=== PATIENT | female | born 1945 | race Caucasian/White ===

== ENCOUNTER → 2019-03-01 | Outpatient (CLI) | payer MEDICARE ==
[~2019-03-01] MED LIST: Bupropion Xl150 MG PO; DIPATRL; FLUOXETINE HCL60 MG PO; HYDCHL25 PO; Pravachol40 MG PO; Prinivil10 MG PO
== END | disposition home or self-care (01) ==
LOC: PLD 08:22 → LAB SHORT 08:22
DX: B35.1 Tinea unguium (principal); L60.2 Onychogryphosis
CPT/HCPCS: 88305; 88312

== ENCOUNTER 2019-03-11 11:10 | Day surgery (SDC) | payer MEDICARE ==
[~2019-03-11 11:10] MED LIST changes: -DIPATRL
[2019-03-11] MEDS ORDERED: DIPATRL (11:58)
--- NOTE | 2019-03-11 12:48 | NUR ---
03/11/19 1248 Lara Knapp 2CC NORMAL SALINE INJECTED FOR POLYPECTOMY IN TRANSVERSE COLON
== END 2019-03-11 13:45 | disposition home or self-care (01) ==
LOC: ORSCSDS 11:10
PROVIDERS: Student in an Organized Health Care Education/Training Program
PROC: 0DBK8ZX Excision of Ascending Colon, Via Natural or Artificial Opening Endoscopic, Diagnostic (ICD-10-PCS; principal; 2019-03-11 12:45)
PROC: 0DBH8ZX Excision of Cecum, Via Natural or Artificial Opening Endoscopic, Diagnostic (ICD-10-PCS; principal; 2019-03-11 12:45)
PROC: 0DBL8ZX Excision of Transverse Colon, Via Natural or Artificial Opening Endoscopic, Diagnostic (ICD-10-PCS; principal; 2019-03-11 12:45)
PROC: 0DBN8ZX Excision of Sigmoid Colon, Via Natural or Artificial Opening Endoscopic, Diagnostic (ICD-10-PCS; principal; 2019-03-11 12:45)
DX: R19.7 Diarrhea, unspecified (principal); Z86.010 Personal history of colon polyps; D12.0 Benign neoplasm of cecum; D12.2 Benign neoplasm of ascending colon; K63.5 Polyp of colon; K57.30 Diverticulosis of large intestine without perforation or abscess without bleeding; F17.210 Nicotine dependence, cigarettes, uncomplicated; Z79.899 Other long term (current) drug therapy; E66.01 Morbid (severe) obesity due to excess calories; Z68.41 Body mass index [BMI] 40.0-44.9, adult
CPT/HCPCS: 88305; J2704; J7120

== ENCOUNTER → 2019-05-11 | Outpatient (CLI) | payer MEDICARE ==
[~2019-05-11] MED LIST changes: +DIPATRL
[2019-05-12 18:27] LABS: Bilirubin, Urine Neg (Neg); Blood, Urine 2+ (Neg); Glucose Qualitative, Urine Neg (Neg); Ketones, Urine Neg (Neg); Leukocyte Esterase, Urine 1+ (Neg); Nitrite, Urine Neg (Neg); Protein, Urine Neg (Neg); Specific Gravity, Urine 1.015 (1.003-1.022); Urobilinogen, Urine NORM (Normal)
[2019-05-12 18:47] LABS: Appearance, Urine Clear (Clear); Color, Urine Yellow (P-Yellow)
[2019-05-12 18:49] LABS: Bacteria Mod /hpf; Calcium Oxalate Crystals Few /hpf; Red Blood Cells, Urine 0-2 /hpf (0-2); Squamous Epithelial Cells Few /hpf (Few)
== END | disposition home or self-care (01) ==
LOC: LAB 17:20 → LAB SHORT 17:20
PROVIDERS: Registered Nurse
DX: R31.9 Hematuria, unspecified (principal)
CPT/HCPCS: 81001; 87086

== ENCOUNTER → 2019-08-11 | Outpatient (CLI) | payer MEDICARE | END | disposition home or self-care (01) | LOC: LAB 18:05 → LAB SHORT 18:05 | DX: R31.9 Hematuria, unspecified (principal) | CPT/HCPCS: 87086 ==

== ENCOUNTER → 2019-08-18 | Outpatient (CLI) | payer MEDICARE ==
[2019-08-18 18:37] LABS: Bilirubin, Urine Neg (Neg); Blood, Urine Neg (Neg); Glucose Qualitative, Urine Neg (Neg); Ketones, Urine Neg (Neg); Leukocyte Esterase, Urine 1+ (Neg); Nitrite, Urine Neg (Neg); Protein, Urine 1+ (Neg); Specific Gravity, Urine 1.025 (1.003-1.022); Urobilinogen, Urine NORM (Normal)
[2019-08-18 18:47] LABS: Appearance, Urine Clear (Clear); Color, Urine Yellow (P-Yellow)
[2019-08-18 18:48] LABS: Bacteria Many /hpf; Red Blood Cells, Urine 0-2 /hpf (0-2); Squamous Epithelial Cells Mod /hpf (Few)
== END | disposition home or self-care (01) ==
LOC: LAB 17:20 → LAB SHORT 17:20
PROVIDERS: Registered Nurse
DX: R31.9 Hematuria, unspecified (principal)
CPT/HCPCS: 81001; 87086

== ENCOUNTER 2020-05-20 14:07 | Emergency (ER) | payer MEDICARE ==
[~2020-05-20] VITALS: Ht 165.1 cm; Wt 127.0 kg
== END 2020-05-20 16:55 | disposition home or self-care (01) ==
LOC: ER 14:07
DX: S06.0X0A Concussion without loss of consciousness, initial encounter (principal); J44.9 Chronic obstructive pulmonary disease, unspecified; I10 Essential (primary) hypertension; E78.5 Hyperlipidemia, unspecified; Z87.891 Personal history of nicotine dependence
CPT/HCPCS: 36415; 70450; 93005; 93010; 99284-25

== ENCOUNTER → 2020-07-03 | Outpatient (CLI) | payer MEDICARE | END | disposition home or self-care (01) | LOC: LAB 12:07 | DX: R33.9 Retention of urine, unspecified (principal); R73.03 Prediabetes | CPT/HCPCS: 36415; 83036 ==

== ENCOUNTER → 2020-10-16 | Outpatient (CLI) | payer MEDICARE ==
[2020-10-16 18:45] LABS: Creatinine, Urine Random 53.2 mg/dL (27.00-270.00)
[2020-10-16 18:48] LABS: Microalb/Creat Ratio UR, Rand 10.602 mg/g (0.000-30.000); Microalbumin, Random Urine 5.64 mg/L (0.000-20.000)
== END | disposition home or self-care (01) ==
LOC: LAB 08:00 → LAB SHORT 08:00
PROVIDERS: Registered Nurse
DX: R73.03 Prediabetes (principal)
CPT/HCPCS: 82043; 82570

== ENCOUNTER → 2021-04-04 | Outpatient (CLI) | payer MEDICARE | LOC: LAB SHORT 07:20 → LAB 07:20 | DX: D48.5 Neoplasm of uncertain behavior of skin (principal); L57.0 Actinic keratosis; Z88.1 Allergy status to other antibiotic agents | CPT/HCPCS: 88305 ==

== ENCOUNTER → 2022-08-22 | Outpatient (CLI) | payer MEDICARE | LOC: LAB 16:32 | DX: R15.9 Full incontinence of feces (principal) | CPT/HCPCS: 82653 ==

== ENCOUNTER 2022-09-15 09:27 | Emergency (ER) | payer MEDICARE ==
[~2022-09-15] VITALS: Ht 165.1 cm; Wt 117.9 kg
[2022-09-15] MEDS ORDERED: BUPROPION HCL200 M1 PO (10:22)
[2022-09-15] MEDS ORDERED: ANORO ELLIPTA1 EAC1 INH (10:23)
[2022-09-15] MEDS ORDERED: METFORMIN HCL500 M2 PO (10:26)
[2022-09-15 11:11] LABS: BASOPHILS ABSOLUTE AUTO 0.04 K/mm3 (0.00-0.23); BASOPHILS PERCENT AUTO 0 % (0-2); EOSINOPHILS ABSOLUTE AUTO 0.01 K/mm3 (0.00-0.68); EOSINOPHILS PERCENT AUTO 0 % (0-6); Hematocrit 36.3 % (33.0-51.0); Hemoglobin 11.6 g/dL (11.5-16.0); IMMATURE GRAN ABSOLUTE AUTO 0.03 K/mm3 (0.00-0.10); IMMATURE GRAN PERCENT AUTO 0 % (0-1); LYMPHOCYTES PERCENT AUTO 11 % (21-46); MONOCYTES ABSOLUTE AUTO 0.53 K/mm3 (0.16-1.47); MONOCYTES PERCENT AUTO 5 % (4-13); Mean Corpuscular HGB 29.5 pg (26.0-34.0); Mean Corpuscular Volume 92 fL (80-100); NEUTROPHILS ABSOLUTE AUTO 8.14 K/mm3 (1.96-9.15); NEUTROPHILS PERCENT AUTO 83 % (41-73); Platelet Count 312 K/mm3 (150-400); RDW Coefficient Variation 14.4 % (11.7-14.2); RDW Standard Deviation 48.7 fL (35.1-46.3); Red Blood Cell Count 3.93 M/mm3 (3.80-5.20); White Blood Cell Count 9.85 K/mm3 (4.00-11.30)
[2022-09-15 11:46] LABS: Magnesium, Blood 1.5 mg/dL (1.6-2.4)
[2022-09-15 11:51] LABS: Albumin, Blood 3.5 g/dL (3.4-5.0); Bilirubin, Total 0.3 mg/dL (0.1-1.0); Bun/Creatinine Ratio 32.6 (12.0-20.0); Calcium, Blood 9.3 mg/dL (8.5-10.1); Creatinine, Blood 1.41 mg/dL (0.40-1.00); Globulin, Blood 3.6 g/dL (2.2-4.0); Potassium, Blood 3.8 mmol/L (3.5-5.5); Thyroid Stimulating Hormone 2.31 uIU/mL (0.360-4.800); Total Protein, Blood 7.1 g/dL (6.4-8.2)
== END 2022-09-15 14:56 | disposition home or self-care (01) ==
LOC: ER 09:27
PROVIDERS: Student in an Organized Health Care Education/Training Program
DX: R53.1 Weakness (principal); E83.42 Hypomagnesemia; N17.9 Acute kidney failure, unspecified; J44.9 Chronic obstructive pulmonary disease, unspecified; R73.03 Prediabetes; I10 Essential (primary) hypertension; E87.5 Hyperkalemia; Z87.891 Personal history of nicotine dependence; Z88.1 Allergy status to other antibiotic agents; Z79.899 Other long term (current) drug therapy
CPT/HCPCS: 36415; 80053; 83690; 83735; 84443; 85025; 93005; 93010; J3475; J7030

== ENCOUNTER 2022-11-11 13:42 | Day surgery (SDC) | payer MEDICARE ==
[~2022-11-11] VITALS: Ht 165.1 cm; Wt 100.0 kg
[~2022-11-11 13:42] MED LIST changes: +ANORO ELLIPTA1 EAC1 INH; +BUPROPION HCL200 M1 PO; +CREON DR 12,001 EACH; +LOPE2C PO; +METFORMIN HCL500 M2 PO; +PRAV20 PO
[2022-11-11] MEDS ORDERED: Prozac40 MG (13:59)
[2022-11-11 14:09] VITALS: BP 98/85
--- NOTE | 2022-11-11 14:40 | NUR ---
11/11/22 1440 Tori Islas UPON EXAM PT C/O "INCREASING SHORTNESS OF BREATH AND DIFFIULTY BREATHING OVER THE PAST TWO WEEKS. I'M TAKING CARE OF MY MOM AND DON'T HAVE TIME TO GO TO THE DOCTOR BUT I HAVE AN APPT IN TWO DAYS WITH MY DOCTOR." MD VEGAS SPOKE WITH PT AND ACUTE BRONCHITIS PRESENT AT THIS TIME AND PT NEEDS ANTIBIOTICS KHADIJAH PT HAS COPD WELL PER MD VEGAS. PT IS CANCELLED AT THIS TIME FOR THIS PROCEDURE BY MD VEGAS DUE TO RESPITORY STATUS. MD VEGAS AND MD FOX BOTH SPOKE WITH PT REGARDING CANCELLATION TODAY. PT AGREED TO CANCEL TODAY.
--- NOTE | 2022-11-11 14:43 | NUR ---
11/11/22 1443 Jodi Messer CASE CANCELLED BY DR VEGAS DUE TO PATIENT WITH SYMPTOMS OF ACUTE BRONCHITIS. PT REPORTS INCREASING SOB OVER THE LAST [address] VEGAS ADVISED PATIENT TO SEE PCP KHADIJAH FOR EVALUATION AND POSSIBLE NEED FOR ANTIBIOTICS. DR SIM ADVISED PATIENT MAY BE ABLE TO RESCHEDULE PT FOR COLONOSCOPY 4 WEEKS AFTER TREATMENT. HE ADVISED PATIENT NOT TO DELAY PROCEDURE FURTHER.
== END 2022-11-11 14:47 | disposition home or self-care (01) ==
LOC: ORSCSDS 13:42
DX: Z86.010 Personal history of colon polyps (principal); Z53.9 Procedure and treatment not carried out, unspecified reason
CPT/HCPCS: 82947; J0461; J2001; J2405; J2704; J7120; Q9968

== ENCOUNTER 2022-12-11 12:03 | Day surgery (SDC) | payer MEDICARE ==
[~2022-12-11] VITALS: Ht 165.1 cm; Wt 100.3 kg
[~2022-12-11 12:03] MED LIST changes: +Prozac40 MG
[2022-12-11] MEDS ORDERED: ZENPEP DR 20,01 EACH (12:22)
[2022-12-11] MEDS ORDERED: Chantix1 MG (12:24)
[2022-12-11 14:20] VITALS: BP 111/72
== END 2022-12-11 14:20 | disposition home or self-care (01) ==
LOC: ORSCSDS 12:03
PROVIDERS: Student in an Organized Health Care Education/Training Program
PROC: 0DBP8ZX Excision of Rectum, Via Natural or Artificial Opening Endoscopic, Diagnostic (ICD-10-PCS; principal; 2022-12-11 13:45)
PROC: 0DBL8ZX Excision of Transverse Colon, Via Natural or Artificial Opening Endoscopic, Diagnostic (ICD-10-PCS; principal; 2022-12-11 13:45)
PROC: 0DBM8ZX Excision of Descending Colon, Via Natural or Artificial Opening Endoscopic, Diagnostic (ICD-10-PCS; principal; 2022-12-11 13:45)
PROC: 0DBN8ZX Excision of Sigmoid Colon, Via Natural or Artificial Opening Endoscopic, Diagnostic (ICD-10-PCS; principal; 2022-12-11 13:45)
PROC: 0DBK8ZX Excision of Ascending Colon, Via Natural or Artificial Opening Endoscopic, Diagnostic (ICD-10-PCS; principal; 2022-12-11 13:45)
DX: Z12.11 Encounter for screening for malignant neoplasm of colon (principal); Z86.010 Personal history of colon polyps; K63.5 Polyp of colon; K57.30 Diverticulosis of large intestine without perforation or abscess without bleeding; I10 Essential (primary) hypertension; E11.9 Type 2 diabetes mellitus without complications; J44.9 Chronic obstructive pulmonary disease, unspecified; E66.9 Obesity, unspecified; Z68.36 Body mass index [BMI] 36.0-36.9, adult; Z79.899 Other long term (current) drug therapy
CPT/HCPCS: 82947; 88305; J2704; J7120

== ENCOUNTER → 2023-04-18 | Outpatient (CLI) | payer MEDICARE ==
[~2023-04-18] MED LIST changes: +Chantix1 MG; +ZENPEP DR 20,01 EACH
[2023-04-18 14:27] LABS: BASOPHILS ABSOLUTE AUTO 0.03 K/mm3 (0.00-0.23); BASOPHILS PERCENT AUTO 1 % (0-2); EOSINOPHILS ABSOLUTE AUTO 0.14 K/mm3 (0.00-0.68); EOSINOPHILS PERCENT AUTO 2 % (0-6); Hematocrit 38.2 % (33.0-51.0); Hemoglobin 12.5 g/dL (11.5-16.0); IMMATURE GRAN ABSOLUTE AUTO 0.03 K/mm3 (0.00-0.10); IMMATURE GRAN PERCENT AUTO 1 % (0-1); LYMPHOCYTES ABSOLUTE AUTO 1.04 K/mm3 (0.84-5.20); LYMPHOCYTES PERCENT AUTO 16 % (21-46); MONOCYTES ABSOLUTE AUTO 0.39 K/mm3 (0.16-1.47); MONOCYTES PERCENT AUTO 6 % (4-13); Mean Corpuscular HGB 30.3 pg (26.0-34.0); Mean Corpuscular HGB Conc 32.7 g/dL (31.5-36.5); Mean Corpuscular Volume 93 fL (80-100); Mean Platelet Volume 9.8 fL (9.1-12.4); NEUTROPHILS ABSOLUTE AUTO 4.99 K/mm3 (1.96-9.15); NEUTROPHILS PERCENT AUTO 75 % (41-73); Platelet Count 285 K/mm3 (150-400); RDW Coefficient Variation 14.4 % (11.7-14.2); RDW Standard Deviation 48.4 fL (35.1-46.3); Red Blood Cell Count 4.13 M/mm3 (3.80-5.20); White Blood Cell Count 6.62 K/mm3 (4.00-11.30)
[2023-04-18 14:34] LABS: Albumin, Blood 3.5 g/dL (3.4-5.0); Albumin/Globulin Ratio 0.9 (0.8-1.8); Bilirubin, Total 0.4 mg/dL (0.1-1.0); Bun/Creatinine Ratio 37.1 (12.0-20.0); Calcium, Blood 9.3 mg/dL (8.5-10.1); Creatinine, Blood 1.24 mg/dL (0.40-1.00); Potassium, Blood 4.2 mmol/L (3.5-5.5); Total Protein, Blood 7.5 g/dL (6.4-8.2)
[2023-04-18 15:23] LABS: Source, Urine Clean Catch
[2023-04-18 15:48] LABS: Bacteria Mod /hpf; Mucus Light (0-Heavy); Red Blood Cells, Urine 0-2 /hpf (0-2); Squamous Epithelial Cells Many /hpf (Few); Transitional Epithelial Cells Rare /hpf (0-Rare)
== END | disposition home or self-care (01) ==
LOC: LAB 14:17 → LAB SHORT 14:17
PROVIDERS: Emergency Medicine
DX: R42 Dizziness and giddiness (principal); R82.79 Other abnormal findings on microbiological examination of urine
CPT/HCPCS: 80053; 81015; 83880; 84484; 85025; 87086

== ENCOUNTER 2023-10-01 22:32 | Inpatient (IN) | payer MEDICARE ==
[~2023-10-01] VITALS: Ht 162.6 cm; Wt 104.3 kg
[~2023-10-01 22:32] MED LIST changes: -Prozac40 MG; +Prozac40 MG PO
[2023-10-01 23:18] LABS: BASOPHILS ABSOLUTE AUTO 0.03 K/mm3 (0.00-0.23); BASOPHILS PERCENT AUTO 0 % (0-2); EOSINOPHILS PERCENT AUTO 0 % (0-6); Hematocrit 31.4 % (33.0-51.0); Hemoglobin 10.2 g/dL (11.5-16.0); IMMATURE GRAN ABSOLUTE AUTO 0.04 K/mm3 (0.00-0.10); IMMATURE GRAN PERCENT AUTO 0 % (0-1); LYMPHOCYTES ABSOLUTE AUTO 1.06 K/mm3 (0.84-5.20); LYMPHOCYTES PERCENT AUTO 11 % (21-46); MONOCYTES ABSOLUTE AUTO 0.95 K/mm3 (0.16-1.47); MONOCYTES PERCENT AUTO 10 % (4-13); Mean Corpuscular HGB 28.3 pg (26.0-34.0); Mean Corpuscular HGB Conc 32.5 g/dL (31.5-36.5); Mean Corpuscular Volume 87 fL (80-100); Mean Platelet Volume 9.8 fL (9.1-12.4); NEUTROPHILS PERCENT AUTO 79 % (41-73); Platelet Count 462 K/mm3 (150-400); RDW Coefficient Variation 14.6 % (11.7-14.2); RDW Standard Deviation 46.6 fL (35.1-46.3); Red Blood Cell Count 3.61 M/mm3 (3.80-5.20); White Blood Cell Count 9.88 K/mm3 (4.00-11.30)
[2023-10-01 23:41] LABS: Albumin, Blood 2.9 g/dL (3.4-5.0); Albumin/Globulin Ratio 0.6 (0.8-1.8); Bilirubin, Total 0.5 mg/dL (0.1-1.0); Bun/Creatinine Ratio 26.1 (12.0-20.0); Calcium, Blood 9.4 mg/dL (8.5-10.1); Creatinine, Blood 1.57 mg/dL (0.40-1.00); Globulin, Blood 4.5 g/dL (2.2-4.0); Potassium, Blood 4.1 mmol/L (3.5-5.5); Total Protein, Blood 7.4 g/dL (6.4-8.2)
[2023-10-02] MEDS ORDERED: Meclizine HCl 25 MG Tab PO ONE (01:05)
[2023-10-02] MEDS ORDERED: Ondansetron HCl 2 MG / ML 2ML Vial IV PRN (01:35)
[2023-10-02] MEDS ORDERED: NS 1,000 ML IV SCH (01:40)
[2023-10-02] MEDS ORDERED: Albumin (Human) 25gm/100ml 100 ML IV ONE (01:45)
[2023-10-02 01:55] LABS: International Normalized Ratio 0.96; Prothrombin Time Results 10.3 Sec (9.7-11.5)
[2023-10-02] MEDS ORDERED: OXYCODONE-ACET1 EAC2 PO (01:56)
[2023-10-02] MEDS ORDERED: ASPI81CH PO (01:57)
[2023-10-02] MEDS ORDERED: NEURONTIN300 MG PO (01:57)
[2023-10-02] MEDS ORDERED: KLOR-CON M1010 MEQ PO (01:57)
[2023-10-02] MEDS ORDERED: ANORO ELLIPTA1 EACH INH (02:59)
[2023-10-02] MEDS ORDERED: CLOP75 PO (03:01)
[2023-10-02 03:11] VITALS: BP 152/92
[2023-10-02] MEDS ORDERED: Acetaminophen 325 MG TABLET PO PRN (04:35)
--- NOTE | 2023-10-02 06:23 | NUR ---
ADMIT FROM ER TO ROOM 124 REPORT FROM HEATHER PT ARRIVED VIA GURNEY. PT REPORTED SHE WAS ABLE TO TRANSFER HERSELF. TRANSFER WAS VERY UNSTEADY AND SHE BECAME VERY SOB AND DIZZY ONCE SHE SAT. PT INFORMED OF FALL RISKS AND EDUCATED NOT TO TRANSFER SELF WITHOUT STAFF PRESENT DUE TO HER CURRENT CONDITION. PT REPORTS SHE AMBULATES AT HOME USING A WALKER. PT VERY SOB EVEN WITH TALKING BUT REPORTS SHE DOES NOT USE OXYGEN. BIOX 92%RA. PT REPORTING CHRONIC BACK AND SCIATIC PAIN. TO [place] TO GIVE APAP. PT WAS COVERED IN BRUISES, SOME VERY LARGE. BRUISES IN MULTIPLE STAGES OF HEALING. PT ALSO HAS A SCAPE TO HER L CALVO WELL A SCAB ON HER L ELBOW. SHE REPORTS ALL THESE INJURIES ARE FROM FALLS OVER THE LAST 2 WEEKS. PT LIVES AT HOME ALONE WITH SOME SUPPORT FROM HER NIGHBORS. PICS OF WOUNDS IN CHART. PT HAS SLURRED SPEECH OFF AND ON WHICH IS NOT HER BASELINE. MRI OF HEAD SCHEDULED FOR 10/02/23, FORM FAXED TO IMAGING THIS AM. WOUND TO L CALVO CLEANSED AND MEPILEX APPLIED. 10/02/23 DANIELA IVORY RN
[2023-10-02 06:28] LABS: BASOPHILS ABSOLUTE AUTO 0.02 K/mm3 (0.00-0.23); BASOPHILS PERCENT AUTO 0 % (0-2); EOSINOPHILS PERCENT AUTO 0 % (0-6); Hematocrit 29.7 % (33.0-51.0); Hemoglobin 9.5 g/dL (11.5-16.0); IMMATURE GRAN ABSOLUTE AUTO 0.03 K/mm3 (0.00-0.10); IMMATURE GRAN PERCENT AUTO 0 % (0-1); LYMPHOCYTES ABSOLUTE AUTO 1.03 K/mm3 (0.84-5.20); LYMPHOCYTES PERCENT AUTO 13 % (21-46); MONOCYTES ABSOLUTE AUTO 0.94 K/mm3 (0.16-1.47); MONOCYTES PERCENT AUTO 12 % (4-13); Mean Corpuscular HGB 28.4 pg (26.0-34.0); Mean Corpuscular Volume 89 fL (80-100); Mean Platelet Volume 9.8 fL (9.1-12.4); NEUTROPHILS ABSOLUTE AUTO 6.03 K/mm3 (1.96-9.15); NEUTROPHILS PERCENT AUTO 75 % (41-73); Platelet Count 440 K/mm3 (150-400); RDW Coefficient Variation 14.8 % (11.7-14.2); RDW Standard Deviation 47.9 fL (35.1-46.3); Red Blood Cell Count 3.34 M/mm3 (3.80-5.20); White Blood Cell Count 8.05 K/mm3 (4.00-11.30)
[2023-10-02 06:45] LABS: Albumin, Blood 3.1 g/dL (3.4-5.0); Albumin/Globulin Ratio 0.8 (0.8-1.8); Bilirubin, Total 0.5 mg/dL (0.1-1.0); Bun/Creatinine Ratio 29.2 (12.0-20.0); Calcium, Blood 9.2 mg/dL (8.5-10.1); Creatinine, Blood 1.37 mg/dL (0.40-1.00); Globulin, Blood 3.7 g/dL (2.2-4.0); Potassium, Blood 3.6 mmol/L (3.5-5.5); Total Protein, Blood 6.8 g/dL (6.4-8.2)
[2023-10-02] MEDS ORDERED: OxyCODONE 10/Acetamin 325 TABLET PO PRN (08:10)
[2023-10-02 08:22] VITALS: BP 134/70
[2023-10-02 08:24] VITALS: BP 126/72
[2023-10-02 08:25] VITALS: BP 120/70; BP 127/70
[2023-10-02] MEDS ORDERED: Tiotropium Bromide 2.5 MCG/ACT MIST INHAL (10 ACT/4 GM) INH SCH (08:25)
[2023-10-02] MEDS ORDERED: Amylase/Lipase/Protease DR 20,000 PO SCH (08:30)
[2023-10-02] MEDS ORDERED: Albuterol HFA200 ACT/6.7 GM INH INH PRN (08:30)
[2023-10-02] MEDS ORDERED: FLUoxetine HCL 20 MG CAP PO SCH (09:00)
[2023-10-02] MEDS ORDERED: buPROPion HCL 150 MG TAB.SR.12H PO SCH (09:00)
[2023-10-02] MEDS ORDERED: Clopidogrel Bisulfate 75 MG Tab PO SCH (09:00)
[2023-10-02] MEDS ORDERED: Aspirin 81 MG Chew PO SCH (09:00)
[2023-10-02] MEDS ORDERED: LevoFLOXacin 750 MG Tab PO SCH (11:00)
[2023-10-02] MEDS ORDERED: Prochlorperazine Edisylate 10 mg Vial IV PRN (11:05)
[2023-10-02] MEDS ORDERED: LevoFLOXacin 750 MG/D5W 150ML 150 ML IV SCH (11:10)
[2023-10-02] MEDS ORDERED: Albuterol 2.5 MG/3 ML VIAL INH PRN (14:35)
[2023-10-02 15:16] VITALS: BP 120/79
--- NOTE | 2023-10-02 18:16 | NUR ---
SHIFT SUMMARY PT AXO, PLEASANT AND COOPERATIVE WITH CARE THOUGH SLURRED SPEECH AT TIMES. PHYSICAL THERAPY ASSESSED PT TODAY, SEE NOTE. VSS. PT IV LEAKED AND CHARGE NURSE REMOVED. PT DID NOT WANT ANOTHER STARTED AT THAT TIME. HOWEVER PT IS NOT VOMITING AND NEEDS IV MEDICATION. STUDENT TO ATTEMPT AT THIS TIME. NO OTHER CHANGES THIS SHIFT. BED IN LOW POSITION, CALL LIGHT WITHIN REACH. PT UP TO A CHAIR AT THIS TIME.
[2023-10-02 19:24] VITALS: BP 109/63
[2023-10-02] MEDS ORDERED: Pravastatin Sodium 20 MG Tab PO SCH (21:00)
--- NOTE | 2023-10-03 04:26 | NUR ---
SHIFT SUMMARY PT WAS ORIGINALLY ON ROOM AIR DURING DAY SHIFT. AT MY START OF SHIFT VS SHOWED 02 SATS 85-86% ON ROOM AIR. CAME UP TO 94% ON 2L NC. RT ALSO ADMINISTERED PRN ALBUTEROL AT THAT TIME WELL. DYSPNIC WITH EXERTION, PRODUCTIVE COUGH. AMBULATES UP 1 ASSIST WITH FWW. CALLS APPROPRIATELY. CALL LIGHT WITHIN REACH. 1X BAG OF IV FLUIDS COMPLETED ONCE NEW IV HAD BEEN PLACED.
[2023-10-03 04:27] VITALS: BP 119/65
[2023-10-03 06:36] LABS: BASOPHILS ABSOLUTE AUTO 0.02 K/mm3 (0.00-0.23); BASOPHILS PERCENT AUTO 0 % (0-2); EOSINOPHILS PERCENT AUTO 0 % (0-6); Hematocrit 29.8 % (33.0-51.0); Hemoglobin 9.6 g/dL (11.5-16.0); IMMATURE GRAN ABSOLUTE AUTO 0.09 K/mm3 (0.00-0.10); IMMATURE GRAN PERCENT AUTO 1 % (0-1); LYMPHOCYTES ABSOLUTE AUTO 1.05 K/mm3 (0.84-5.20); LYMPHOCYTES PERCENT AUTO 13 % (21-46); MONOCYTES ABSOLUTE AUTO 1.06 K/mm3 (0.16-1.47); MONOCYTES PERCENT AUTO 13 % (4-13); Mean Corpuscular HGB 28.2 pg (26.0-34.0); Mean Corpuscular HGB Conc 32.2 g/dL (31.5-36.5); Mean Corpuscular Volume 87 fL (80-100); Mean Platelet Volume 9.4 fL (9.1-12.4); NEUTROPHILS ABSOLUTE AUTO 5.87 K/mm3 (1.96-9.15); NEUTROPHILS PERCENT AUTO 73 % (41-73); Platelet Count 449 K/mm3 (150-400); RDW Coefficient Variation 14.6 % (11.7-14.2); Red Blood Cell Count 3.41 M/mm3 (3.80-5.20); White Blood Cell Count 8.09 K/mm3 (4.00-11.30)
[2023-10-03 07:00] LABS: Bun/Creatinine Ratio 35.3 (12.0-20.0); Calcium, Blood 9.5 mg/dL (8.5-10.1); Creatinine, Blood 0.96 mg/dL (0.40-1.00); Potassium, Blood 3.6 mmol/L (3.5-5.5)
[2023-10-03 07:53] VITALS: BP 131/92
[2023-10-03] MEDS ORDERED: Enoxaparin 40 MG/0.4 ML SYR SC SCH (15:00)
[2023-10-03 15:35] VITALS: BP 109/85
--- NOTE | 2023-10-03 18:19 | NUR ---
ALERT AND ORIENTED TO ALL, PLEASANT TO CARE, CLEARLY MAKES NEEDS KNOWN, WORKED WITH PT/OT TODAY, SNF RECOMMEMDED, PATIENT AGREED, INSURANCE HAS BEEN SENT TO FACILITIES FOR APPROVAL. PATIENT DESATS TO 85% WITH AMBULATION ON RA, RECOVERS QUICKLY, 2L O2 VIA NC 100% SATS, CLEARS CONGESTION WITH COUGHT, CALL LIGHT WITH IN REACH, WILL RELAY TO PM RN
[2023-10-03 19:22] VITALS: BP 127/70
[2023-10-04 04:21] VITALS: BP 127/69
--- NOTE | 2023-10-04 05:26 | NUR ---
SHIFT SUMMARY PATIENT IS ALERT AND ORIENTED. PATIENT HAS HAD NO ACUTE EVENTS THIS SHIFT. VITAL SIGNS REVIEWED. PATIENT HAS REPORTED PAIN AND MEDICATED PER EMAR. PATIENT HAS HAD NO COMPLAINTS OF SOB, NAUSEA, VOMITTING THIS SHIFT. PATIENT HAS BEEN A SBA THIS SHIFT. PATIENT IS A POTENTIAL DC TO SNF TODAY.
[2023-10-04 07:21] VITALS: BP 128/69
[2023-10-04 15:44] VITALS: BP 122/70
--- NOTE | 2023-10-04 18:37 | NUR ---
NO ACUTE CHANGES, PATIENT AGREES TO SNF PLACEMENT, TELE DISCONTINUED, CONTINUES TO REFUSE OXYGEN, SHOWERED TODAY, ALERT AND ORIENTED TO ALL, CLEARLY MAKES NEEDS KNOWN, DEMANDING WITH NEEDS AND IMPATIENT FOR THEM TO BE DONE, MEDICATED WITH TYLENOL AND PERCOCET THROUGH OUT THE DAY. VSS, CALL LIGHT WITH IN REACH, WILL RELAY TO PM RN
[2023-10-04 19:12] VITALS: BP 135/64
[2023-10-05 04:41] VITALS: BP 120/92
--- NOTE | 2023-10-05 05:12 | NUR ---
QUALITY ASSURANCE INTERN SUMMARY PT A&O X 4. PLEASANT. PT INDEPENDENT IN ROOM, DENIES DIZZINESS. PT CONTINUES TO BE SOB WITH EXERTION AND DECLINES O2. NO SLURRED SPEECH NOTED TONIGHT. PT DID REPORT THAT SHE HAS BEEN UPSET TODAY OVER AGREEING TO GO TO A SNF PER PT RECOMENDATION, THEN BEING TOLD SHE IS WAITING IN THE HOSPITAL FOR A SNF BED TO OPEN. PT WANTS TO GO HOME WITH HOME HEALTH PHYSICAL THERAPY INSTEAD OF WAITING IN THE HOSPITAL DUE TO FINANCIAL CONCERNS. NOTE LEFT FOR PHYSICIAN ON WHITE BOARD THAT SHE WOULD LIKE TO DISCUSS THIS. PT C/O LOWER BACK TRAVELING DOWN BOTH LEGS. MEDICATED WITH OXYCODONE WITH GOOD RELIEF. PT SLEPT MOST OF THE NIGHT WITH NO ACUTE CHANGES THIS SHIFT. 10/05/23 DANIELA IVORY RN
[2023-10-05 07:50] VITALS: BP 125/81
--- NOTE | 2023-10-05 12:20 | NUR ---
DR BISHOP ROUNDED, PATIENT TO BE DSICHARGED WITH HOME HEALTH, NOTIFIED CASE MANAGEMENT, PATIENTS BROTHER IN ROOM TO TAKE PATIENT HOME
[2023-10-05] MEDS ORDERED: LevoFLOXacin 750 MG Tab PO ONE (12:25)
[2023-10-05] MEDS ORDERED: TIOT18 INH (12:51)
[2023-10-05] MEDS ORDERED: LEVO750 PO (12:51)
[2023-10-05] MEDS ORDERED: VISBIOME 112.51 EACH PO (12:52)
[2023-10-05] MEDS ORDERED: Acetaminophen650 M1 PO (12:54)
[2023-10-05] MEDS ORDERED: ALBU90OI INH (12:55)
== END 2023-10-05 13:30 | disposition home health service (06) | DRG 193 ==
LOC: ER 22:32 → MEDS 22:33
PROVIDERS: Emergency Medicine; Internal Medicine; ADMIT Internal Medicine
DX: J18.9 Pneumonia, unspecified organism (principal); J96.01 Acute respiratory failure with hypoxia; J44.0 Chronic obstructive pulmonary disease with (acute) lower respiratory infection; N17.9 Acute kidney failure, unspecified; M54.2 Cervicalgia; M54.30 Sciatica, unspecified side; R29.6 Repeated falls; R47.81 Slurred speech; T14.8XXA Other injury of unspecified body region, initial encounter; W18.30XA Fall on same level, unspecified, initial encounter; R26.9 Unspecified abnormalities of gait and mobility; R11.2 Nausea with vomiting, unspecified; I10 Essential (primary) hypertension; E78.5 Hyperlipidemia, unspecified; F17.210 Nicotine dependence, cigarettes, uncomplicated; Z88.1 Allergy status to other antibiotic agents; Z90.49 Acquired absence of other specified parts of digestive tract
CPT/HCPCS: 36415; 70450; 70551; 71045; 72125; 80048; 80053; 83880; 84484; 85025; 85610; 93005; 93010; 94640; 94664; 94760; 96365; 96366; 96367; 96375; 97110; 97116; 97162; 97165; 97530; 97535; 99285-25; A9270; G0378; J0780; J1650; J1956; J7030; P9047

== ENCOUNTER 2023-11-24 18:26 | Emergency (ER) | payer MEDICARE ==
[~2023-11-24] VITALS: Ht 165.1 cm; Wt 104.3 kg
[~2023-11-24 18:26] MED LIST changes: +ALBU90OI INH; +ANORO ELLIPTA1 EACH INH; +ASPI81CH PO; +Acetaminophen650 M1 PO; +CLOP75 PO; +KLOR-CON M1010 MEQ PO; +LEVO750 PO; +NEURONTIN300 MG PO; +OXYCODONE-ACET1 EAC2 PO; +TIOT18 INH; +VISBIOME 112.51 EACH PO
[2023-11-24 18:31] VITALS: BP 150/90
[2023-11-24] MEDS ORDERED: Acetaminophen 325 MG TABLET PO ONE (19:40)
== END 2023-11-24 20:44 | disposition home or self-care (01) ==
LOC: ER 18:26
DX: S92.512A Displaced fracture of proximal phalanx of left lesser toe(s), initial encounter for closed fracture (principal); W18.39XA Other fall on same level, initial encounter; I11.0 Hypertensive heart disease with heart failure; I50.30 Unspecified diastolic (congestive) heart failure; J44.9 Chronic obstructive pulmonary disease, unspecified; E78.5 Hyperlipidemia, unspecified; Z79.82 Long term (current) use of aspirin; Z79.899 Other long term (current) drug therapy
CPT/HCPCS: 73630; 99283-25; A9270

== ENCOUNTER → 2025-01-27 | Outpatient (CLI) | payer OTHER ==
[2025-01-27 14:18] LABS: BASOPHILS ABSOLUTE AUTO 0.03 K/mm3 (0.00-0.23); BASOPHILS PERCENT AUTO 0 % (0-2); EOSINOPHILS ABSOLUTE AUTO 0.16 K/mm3 (0.00-0.68); EOSINOPHILS PERCENT AUTO 2 % (0-6); Hematocrit 37.7 % (33.0-51.0); Hemoglobin 12.2 g/dL (11.5-16.0); IMMATURE GRAN ABSOLUTE AUTO 0.03 K/mm3 (0.00-0.10); IMMATURE GRAN PERCENT AUTO 0 % (0-1); LYMPHOCYTES ABSOLUTE AUTO 0.89 K/mm3 (0.84-5.20); LYMPHOCYTES PERCENT AUTO 13 % (21-46); MONOCYTES ABSOLUTE AUTO 0.38 K/mm3 (0.16-1.47); MONOCYTES PERCENT AUTO 6 % (4-13); Mean Corpuscular HGB Conc 32.4 g/dL (31.5-36.5); Mean Corpuscular Volume 96 fL (80-100); NEUTROPHILS ABSOLUTE AUTO 5.42 K/mm3 (1.96-9.15); NEUTROPHILS PERCENT AUTO 79 % (41-73); NRBC ABSOLUTE 0.00 K/mm3 (0.00-0.02); NRBC Auto 0.0 /100 WBC (0.0-0.2); Platelet Count 250 K/mm3 (150-400); RDW Coefficient Variation 14.2 % (11.7-14.2); RDW Standard Deviation 50.4 fL (35.1-46.3)
[2025-01-27 17:50] LABS: Ferritin, Serum 74.0 ng/mL (8-252); Total Iron Binding Capacity 304.0 ug/dL (250-450)
[2025-01-27 17:52] LABS: Alanine Aminotransfer (ALT/SGP 24 U/L (12-78); Albumin, Blood 3.6 g/dL (3.4-5.0); Albumin/Globulin Ratio 1.1 (0.8-1.8); Anion Gap 11 mmol/L (3-11); Aspartate Aminotrans (AST/SGOT 22 U/L (12-37); Bilirubin, Total 0.4 mg/dL (0.1-1.0); Blood Urea Nitrogen 24 mg/dL (8-24); CHOL/HDL RATIO 2.2; CO2, Blood 24 mmol/L (21-32); Calcium, Blood 8.7 mg/dL (8.5-10.1); Chloride, Blood 108 mmol/L (98-108); Cholesterol 198 mg/dL (50-200); Creatinine, Blood 0.78 mg/dL (0.40-1.00); Globulin, Blood 3.2 g/dL (2.2-4.0); Glucose, Blood 127 mg/dL (70-99); HDL Cholesterol 88 mg/dL (>39); LDL/HDL RATIO 1.1; Low Density Lipoprotein Chol 95 mg/dL (0-110); Potassium, Blood 4.3 mmol/L (3.5-5.5); Sodium, Blood 139 mmol/L (136-145); Thyroid Stimulating Hormone 2.060 uIU/mL (0.360-4.800); Total Protein, Blood 6.8 g/dL (6.4-8.2); Triglycerides 76 mg/dL (30-160); Very Low Density Lipoprot Chol 15 mg/dL (6-32)
== END ==
LOC: LAB 13:20 → LAB SHORT 13:20
PROVIDERS: Internal Medicine
DX: E66.813 Obesity, class 3 (principal); E78.00 Pure hypercholesterolemia, unspecified; I10 Essential (primary) hypertension; K86.89 Other specified diseases of pancreas; R73.03 Prediabetes; D50.9 Iron deficiency anemia, unspecified
CPT/HCPCS: 80053; 80061; 82728; 83036; 83540; 83550; 84443; 85025

== ENCOUNTER 2025-03-15 17:34 | Emergency (ER) | payer OTHER ==
[~2025-03-15] VITALS: Ht 165.1 cm; Wt 113.4 kg
[2025-03-15 18:16] LABS: BASOPHILS ABSOLUTE AUTO 0.03 K/mm3 (0.00-0.23); BASOPHILS PERCENT AUTO 0 % (0-2); EOSINOPHILS ABSOLUTE AUTO 0.00 K/mm3 (0.00-0.68); EOSINOPHILS PERCENT AUTO 0 % (0-6); Hematocrit 38.6 % (33.0-51.0); Hemoglobin 12.8 g/dL (11.5-16.0); IMMATURE GRAN ABSOLUTE AUTO 0.04 K/mm3 (0.00-0.10); IMMATURE GRAN PERCENT AUTO 0 % (0-1); LYMPHOCYTES ABSOLUTE AUTO 0.57 K/mm3 (0.84-5.20); LYMPHOCYTES PERCENT AUTO 6 % (21-46); MONOCYTES ABSOLUTE AUTO 0.46 K/mm3 (0.16-1.47); MONOCYTES PERCENT AUTO 5 % (4-13); Mean Corpuscular HGB Conc 33.2 g/dL (31.5-36.5); Mean Corpuscular Volume 93 fL (80-100); NEUTROPHILS ABSOLUTE AUTO 7.95 K/mm3 (1.96-9.15); NEUTROPHILS PERCENT AUTO 88 % (41-73); NRBC ABSOLUTE 0.00 K/mm3 (0.00-0.02); NRBC Auto 0.0 /100 WBC (0.0-0.2); Platelet Count 238 K/mm3 (150-400); RDW Coefficient Variation 13.5 % (11.7-14.2); RDW Standard Deviation 45.9 fL (35.1-46.3)
[2025-03-15 18:46] LABS: Alanine Aminotransfer (ALT/SGP 29.0 U/L (12-78); Albumin, Blood 3.7 g/dL (3.4-5.0); Albumin/Globulin Ratio 1.0 (0.8-1.8); Anion Gap 9.0 mmol/L (3-11); Aspartate Aminotrans (AST/SGOT 33.0 U/L (12-37); Bilirubin, Total 0.5 mg/dL (0.1-1.0); Blood Urea Nitrogen 25.0 mg/dL (8-24); CO2, Blood 25.0 mmol/L (21-32); Calcium, Blood 9.1 mg/dL (8.5-10.1); Chloride, Blood 106.0 mmol/L (98-108); Creatinine, Blood 0.96 mg/dL (0.40-1.00); Globulin, Blood 3.8 g/dL (2.2-4.0); Glucose, Blood 204.0 mg/dL (70-99); Potassium, Blood 3.9 mmol/L (3.5-5.5); Sodium, Blood 136.0 mmol/L (136-145); Total Protein, Blood 7.5 g/dL (6.4-8.2)
[2025-03-15 22:45] VITALS: BP 149/82
== END 2025-03-15 23:52 | disposition home or self-care (01) ==
LOC: ER 17:34
PROVIDERS: Physician Assistant
DX: M79.672 Pain in left foot (principal); J44.9 Chronic obstructive pulmonary disease, unspecified; E78.5 Hyperlipidemia, unspecified; F17.210 Nicotine dependence, cigarettes, uncomplicated; Z91.81 History of falling; Z88.1 Allergy status to other antibiotic agents; Z79.82 Long term (current) use of aspirin; Z79.02 Long term (current) use of antithrombotics/antiplatelets; Z79.899 Other long term (current) drug therapy
CPT/HCPCS: 70450; 73620; 80053; 85025; A9270